=== PATIENT | male | born 1945 | race Caucasian/White ===

== ENCOUNTER 2017-01-15 16:39 | Emergency (ER) | payer MEDICARE, OTHER ==
[~2017-01-15] VITALS: Ht 170.2 cm; Wt 77.3 kg
[~2017-01-15 16:39] MED LIST: 00186-0370-20 IH; 00186-0372-20 IH; ALBUTEROL0.83 MG/ML IH; ASPIRIN E.C. 8181 MG PO; BETAPACE160 MG PO; COMBIRESP IH; COMBIVENT INH14.7 GM IH; CORDARONE200 MG/TAB PO; COREG 3.123.125 MG/T PO; COZAAR 50MG50 MG/TAB PO; D-31000 IU PO; HYTRIN 1MG C1 MG/CAP PO; LASIX 20MG TABL20 MG PO; LEVEMIR FLEX100 U/ML SQ; NOVOLOG FLEX100 U/ML SQ; PERCOCET 325 MG1 TA2 PO; PLAVIX 75MG TAB75 MG PO; PREDNISONE10 MG PO; PROTONIX 40MG T40 MG PO; TIAZAC120 MG PO; VIAGRA100 M1 PO; VITAMIN B COMPL1 T16 PO; VITAMIN D1000 IU PO; XARELTO15 MG PO; ZANTAC 150MG T150 MG PO; ZITHROMAX 250M250 MG PO; ZOCOR 20MG20 MG PO
[2017-01-15 16:57] VITALS: TEMP 97.2
[2017-01-15] MEDS ORDERED: PROTONIX 40MG T40 MG PO (18:21)
[2017-01-15] MEDS ORDERED: 00186-0370-20 IH (18:22)
[2017-01-15] MEDS ORDERED: LASIX 20MG TABL20 MG PO (18:22)
[2017-01-15] MEDS ORDERED: ZOCOR 20MG20 MG PO (18:23)
[2017-01-15] MEDS ORDERED: ZANTAC 150MG T150 MG PO (18:23)
[2017-01-15] MEDS ORDERED: HYTRIN 1MG C1 MG/CAP PO (18:24)
[2017-01-15] MEDS ORDERED: ASPIRIN 81M81 MG/TA2 PO (18:24)
[2017-01-15] MEDS ORDERED: PROAIR HFA0.09 MG/AC IH (18:25)
[2017-01-15] MEDS ORDERED: COMBIRESP IH (18:25)
[2017-01-15] MEDS ORDERED: NORCO 325 MG-51 TAB PO (18:58)
[2017-01-15 19:09] VITALS: BP 128/68; PULSE 86
== END 2017-01-15 19:10 | disposition home or self-care (01) ==
LOC: COL.ER 16:39
DX: M54.6 Pain in thoracic spine (principal); M54.5 Low back pain; G89.29 Other chronic pain; I25.2 Old myocardial infarction; I50.9 Heart failure, unspecified; N19 Unspecified kidney failure; J44.9 Chronic obstructive pulmonary disease, unspecified; Z99.81 Dependence on supplemental oxygen

== ENCOUNTER → 2017-01-31 | Outpatient (CLI) | payer MEDICARE, OTHER ==
[~2017-01-31] MED LIST changes: +ASPIRIN 81M81 MG/TA2 PO; +NORCO 325 MG-51 TAB PO; +PROAIR HFA0.09 MG/AC IH
== END ==
LOC: COL.PUL 09:56
DX: R06.02 Shortness of breath (principal)

== ENCOUNTER 2018-11-23 19:57 | Emergency (ER) | payer MEDICARE, OTHER ==
[2018-11-23 20:03] VITALS: PULSE 0
--- NOTE | 2018-11-23 21:10 | NUR ---
Patient passed after being released from [facility]. Nurse Ziegler from ER called at approximately 7:50 and informed me the patient was in the ER and was , his and daughter were present when I arrived, his grandson and three grand-daughters arrived shortly after I got here. The family was very distraught and I provided spiritual care until they I felt they were emotionally stable enough to read Scripture and pray with.
== END 2018-11-23 23:50 | disposition expired ==
LOC: COL.ER 19:57
DX: J96.90 Respiratory failure, unspecified, unspecified whether with hypoxia or hypercapnia (principal); J44.9 Chronic obstructive pulmonary disease, unspecified; Z79.82 Long term (current) use of aspirin